=== PATIENT | male | born 1990 | race Caucasian/White ===

== ENCOUNTER 2020-04-09 19:06 | Emergency (ER) | payer OTHER ==
[~2020-04-09] VITALS: Ht 182.9 cm; Wt 75.0 kg
[~2020-04-09 19:06] MED LIST: LEVO500T59 PO
[2020-04-09 19:13] VITALS: BP 140/73
[2020-04-09] MEDS ORDERED: TRAM-48 PO (20:07)
[2020-04-09] MEDS ORDERED: CYCL10TA2 PO (20:07)
--- NOTE | 2020-04-09 20:07 | PHYS DOC ---
Past Medical History Past Medical History: No Pertinent History Past Surgical History: No Surgical History Smoking Status: Current Every Day Smoker Alcohol Use: None Drug Use: None General Adult EDM: Chief Complaint: BACK PAIN - NO INJURY HPI: HPI: Patient is a 29 year old male presents with a chief complaint of left-sided buttocks back pain and leg pain. Patient states prior to arrival he was shoveling the snow had sudden onset of pain. Pain left buttocks radiate down left leg. Patient states pain took him to his knees. Patient arrived via private vehicle. Patient ambulated into the ER he has no saddle anesthesia no loss of bowel or bladder. There is no midline T-spine lumbar spine tenderness. Based upon history of present illness and physical exam no emergent lab or radiologic imaging ordered. Working diagnosis sciatica. Patient treated with Toradol and Flexeril. Patient discharged home with prescription Ultram and Flexeril. Also advised to take Tylenol ibuprofen as needed. Review of Systems: Review of Systems: Constitutional: Denies fever or chills. [] Eyes: Denies change in visual acuity. [] HENT: Denies nasal congestion or sore throat. [] Respiratory: Denies cough or shortness of breath. [] Cardiovascular: Denies chest pain or edema. [] GI: Denies abdominal pain, nausea, vomiting, bloody stools or diarrhea. [] : Denies dysuria. [] Musculoskeletal: Positive leg pain positive back pain Integument: Denies rash. [] Neurologic: Denies headache, focal weakness or sensory changes. [] Endocrine: Denies polyuria or polydipsia. [] Lymphatic: Denies swollen glands. [] Psychiatric: Denies depression or anxiety. [] Heart Score: Risk Factors: Risk Factors: DM, Current or recent (<one month) smoker, HTN, HLP, family history of CAD, obesity. Risk Scores: Score 0 - 3: 2.5% MACE over next 6 weeks - Discharge Home Score 4 - 6: 20.3% MACE over next 6 weeks - Admit for Clinical Observation Score 7 - 10: 72.7% MACE over next 6 weeks - Early Invasive Strategies Allergies: Allergies: Allergies Coded Allergies Type Severity Reaction Last Updated Verified No Known Drug Allergies 08/12/13 No Physical Exam: PE: Constitutional: Well developed, well nourished, no acute distress, non-toxic appearance. [] HENT: Normocephalic, atraumatic, bilateral external ears normal, oropharynx moist, no oral exudates, nose normal. [] Eyes: PERRLA, EOMI, conjunctiva normal, no discharge. [] Neck: Normal range of motion, no tenderness, supple, no stridor. [] Cardiovascular:Heart rate regular rhythm, no murmur [] Lungs & Thorax: Bilateral breath sounds clear to auscultation [] Abdomen: Bowel sounds normal, soft, no tenderness, no masses, no pulsatile masses. [] Skin: Warm, dry, no erythema, no rash. [] Back: No tenderness, no CVA tenderness. [] Extremities: No tenderness, no cyanosis, no clubbing, ROM intact, no edema. [] Neurologic: Alert and oriented X 3, normal motor function, normal sensory function, no focal deficits noted. [] Psychologic: Affect normal, judgement normal, mood normal. [] Current Patient Data: Vital Signs: Vital Signs Date Time Temp Pulse Resp B/P (MAP) Pulse Ox O2 Delivery O2 Flow Rate FiO2 04/09/20 19:13 98.5 83 20 140/73 (95) 97 Room Air 98.5 EKG: EKG: [] Radiology/Procedures: Radiology/Procedures: [] Course & Med Decision Making: Course & Med Decision Making Pertinent Labs and Imaging studies reviewed. (See chart for details) [] Dragon Disclaimer: Dragon Disclaimer: This electronic medical record was generated, in whole or in part, using a voice recognition dictation system. Departure Departure Impression: Primary Impression: Back pain Additional Impression: Sciatic leg pain Disposition: 01 HOME SELF CARE/HOMELESS Condition: STABLE Referrals: ALFA BADILLO MD (PCP) Patient Instructions: Sciatica Scripts Cyclobenzaprine Hcl (CYCLOBENZAPRINE HCL) 10 Mg Tablet 1 TAB PO TID, #30 TAB Prov: AYDE FOSTER DO 04/09/20 Tramadol Hcl (ULTRAM) 50 Mg Tablet 50 MG PO Q6HRS PRN for PAIN, #20 TAB 0 Refills Prov: AYDE FOSTER DO 04/09/20 AYDE FOSTER DO Apr 09, 2020 20:07
[2020-04-09] MEDS ORDERED: KETOROLAC 60 MG/2 ML VIAL. IM ONE (20:15)
[2020-04-09] MEDS ORDERED: CYCLOBENZAPRINE 10 MG TABLET. PO ONE (20:15)
== END 2020-04-09 20:18 | disposition home or self-care (01) ==
LOC: ER 19:06
DX: M54.42 Lumbago with sciatica, left side (principal); F17.200 Nicotine dependence, unspecified, uncomplicated
CPT/HCPCS: 96372; 99283; J1885